=== PATIENT | male | born 1990 | race Caucasian/White ===

== ENCOUNTER 2020-10-05 | Outpatient (CLI) | payer BC | END 2020-10-05 23:59 | disposition critical access hospital (66) | CPT/HCPCS: A0425; A0427 ==

== ENCOUNTER 2020-10-05 22:35 | Emergency (ER) | payer BC, OTHER ==
--- NOTE | 2020-10-05 22:38 | ED Physician Documentation ---
History of Present Illness - Stated complaint Stated Complaint: ETOH/OD - History obtained from History obtained from: Patient, EMS - History of Present Illness Timing: Today Pain level now: 0 - Additonal information Additional information: BIBA for alcohol intoxication. Patient was at a [employer] tonight, reportedly was drinking liquor to excess, friend called 911 due to patient vomiting repeatedly in bathroom. Patient is drowsy but can contribute some information to HPI/ROS when woken. IV zofran 4mg given by medics en route for n/v Review of Systems Unable to obtain: Intoxicated, Other (able to obtain some HPI/ROS from patient) GI: reports: Nausea, Vomiting. denies: Abdominal Pain, Constipation, Diarrhea Neurologic: denies: Headache, Head injury PD PAST MEDICAL HISTORY - Past Medical History Past Medical History: No - Present Medications Home Medications: Ambulatory Orders Medication Instructions Recorded Confirmed No Known Home Medications 10/05/20 10/05/20 - Allergies Allergies/Adverse Reactions: Allergies Allergy/AdvReac Type Severity Reaction Status Date / Time No Known Drug Allergies Allergy Verified 10/05/20 22:39 PD ED PE NORMAL - Vitals Vital signs reviewed: Yes - General General: No acute distress, Well developed/nourished, Other (drowsy, awakens to voice/gentle tactile. answers most questions with quiet, brief answers, falls back asleep easily) - HEENT HEENT: Atraumatic, PERRL, EOMI, Moist mucous membranes - Cardiac Cardiac: RRR, No murmur - Respiratory Respiratory: No respiratory distress, Clear bilaterally - Abdomen Abdomen: Soft, Non tender - Neuro Eye Opening: To Voice Motor: Obeys Commands Verbal: Oriented GCS Score: 14 Results - Vitals Vitals: Vital Signs - 24 hr 10/05/20 10/05/20 10/06/20 22:39 22:47 00:47 Temperature 36.1 C L 36.1 C L 37.1 C Heart Rate 90 90 89 Respiratory 21 21 20 Rate Blood Pressure 137/92 H 137/95 H 115/63 O2 Saturation 95 95 97 10/06/20 10/06/20 10/06/20 02:05 03:32 05:48 Temperature 37.1 C 37.1 C Heart Rate 98 82 80 Respiratory 15 16 18 Rate Blood Pressure 114/74 115/74 119/73 O2 Saturation 98 98 98 Oxygen O2 Source Room air - Labs Labs: Laboratory Tests 10/05/20 10/05/20 23:04 23:04 WBC 7.7 RBC 4.93 Hgb 14.7 Hct 43.3 MCV 87.8 MCH 29.8 MCHC 33.9 RDW 11.9 L Plt Count 192 MPV 9.7 Neut # (Auto) 5.2 Lymph # (Auto) 1.8 [place] # (Auto) 0.5 Eos # (Auto) 0.1 Baso # (Auto) 0.0 Absolute Nucleated RBC 0.00 Nucleated RBC % 0.0 Sodium 138 Potassium 3.8 Chloride 104 Carbon Dioxide 24 Anion Gap 10.0 BUN 17 Creatinine 1.0 Estimated GFR (MDRD) 89 Glucose 107 H Calcium 8.2 L Total Bilirubin 0.5 AST 30 ALT 55 Alkaline Phosphatase 69 Total Protein 7.1 Albumin 4.4 Globulin 2.7 Albumin/Globulin Ratio 1.6 Lipase 19 L Ethyl Alcohol 340.3 PD MEDICAL DECISION MAKING - ED course Complexity details: reviewed results, re-evaluated patient, considered differential, d/w patient ED course: Patient observed overnight in ED pending clinical sobriety. On reevaluation at 6:00 AM, he is awake, alert, oriented x 3. He is calm, cooperative, polite. He does not recall coming in to ED last night. He does admit to drinking alcohol to excess last night. He is asymptomatic and requests d/c home. Departure - Departure Disposition: 01 Home, Self Care Clinical Impression: Alcohol intoxication Condition: Good Instructions: ED Alcohol Intoxication
[2020-10-05 23:09] LABS: BASOPHILS % (AUTO) 0.5 %; EOSINOPHILS # (AUTO) 0.1 10^3/uL (0.0-0.7); EOSINOPHILS % (AUTO) 1.6 %; HCT - HEMATOCRIT 43.3 % (42.0-52.0); HGB - HEMOGLOBIN 14.7 g/dL (14.0-18.0); LYMPHOCYTES # (AUTO) 1.8 10^3/uL (1.5-3.5); LYMPHOCYTES % (AUTO) 23.8 %; MEAN CORPUSCULAR HEMOGLOBIN 29.8 pg (27.0-31.0); MEAN CORPUSCULAR HGB CONC 33.9 g/dL (32.0-36.0); MEAN CORPUSCULAR VOLUME 87.8 fL (80.0-94.0); MEAN PLATELET VOLUME 9.7 fL (7.4-11.4); MONOCYTES # (AUTO) 0.5 10^3/uL (0.0-1.0); MONOCYTES % (AUTO) 6.4 %; NEUTROPHILS # (AUTO) 5.2 10^3/uL (1.5-6.6); PLT - PLATELET COUNT 192 10^3/uL (130-450); RED BLOOD COUNT 4.93 10^6/uL (4.70-6.10); RED CELL DISTRIBUTION WIDTH 11.9 % (12.0-15.0); WHITE BLOOD COUNT 7.7 x10^3/uL (4.8-10.8)
[2020-10-05 23:21] LABS: ALBUMIN 4.4 g/dL (3.2-5.5); ALBUMIN/GLOBULIN RATIO 1.6 (1.0-2.2); BILIRUBIN,TOTAL 0.5 mg/dL (0.2-1.0); CALCIUM 8.2 mg/dL (8.5-10.3); ETOH - ETHANOL 340.3 mg/dL; POTASSIUM 3.8 mmol/L (3.5-5.0); TOTAL PROTEIN 7.1 g/dL (6.7-8.2)
[2020-10-06 05:50] VITALS: BP 119/73
== END 2020-10-06 06:56 | disposition home or self-care (01) ==
LOC: ED 22:35
DX: F10.129 Alcohol abuse with intoxication, unspecified (principal)
CPT/HCPCS: 36415; 80053; 80320; 83690; 85025; 99282; 99283